=== PATIENT | male | born 1930 | race Caucasian/White ===

== ENCOUNTER 2019-07-26 13:59 | Observation (INO) | payer MEDICARE ==
[~2019-07-26] VITALS: Ht 182.9 cm; Wt 80.7 kg
[~2019-07-26 13:59] MED LIST: ASPIRIN ENTERI325 MG PO; COUMADIN2 MG PO; DILTIAZEM ER120 MG PO; DIOVAN80 MG PO; FINASTERIDE5 MG PO; LOSARTAN POTASS25 MG PO; LOVENOX60 MG/0.6 SC; OMEPRAZOLE40 MG PO; TAMSULOSIN HCL0.4 MG PO; WARFARIN SODIUM3 MG PO
[2019-07-26 15:43] LABS: CLARITY,URINE CLOUDY (CLEAR); COLOR,URINE YELLOW (YELLOW)
[2019-07-26 15:44] LABS: BILIRUBIN,URINE NEGATIVE (NEGATIVE); KETONES,URINE NEGATIVE (NEGATIVE); LEUKOCYTE ESTERASE ,URINE LARGE (NEGATIVE); NITRITE,URINE NEGATIVE (NEGATIVE); PROTEIN,URINE DIPSTICK 2+ (NEGATIVE); URINE UROBILINOGEN 0.2 mg/dL (0.2 - 1)
--- NOTE | 2019-07-26 15:48 | Diagnostic Imaging Report ---
EXAMINATION: CHEST 2 VIEWS INDICATION: Cough COMPARISON: None FINDINGS: LINES/TUBES:None LUNGS:The lungs are moderately inflated. No focal consolidation or pulmonary edema. PLEURA:Scattered calcifications overlying both lungs and at both diaphragms are likely pleural-based. No pleural effusion. No pneumothorax. MEDIASTINUM:The cardiomediastinal silhouette appears normal in size and shape. Atherosclerotic calcifications of the thoracic aorta. BONES/SOFT TISSUES:No acute osseous injury. ABDOMEN:No free air under the diaphragm. IMPRESSION: No focal pneumonia or pulmonary edema. Likely pleural-based calcifications, which can be seen with priors vessels exposure. Signed by: Kirsten Liu MD on 07/26/2019 3:46 PM
[2019-07-26 15:58] LABS: BACTERIA,URINE FEW /HPF; WBC,URINE (MAN) >50 /HPF (0-5)
[2019-07-26 16:00] LABS: EPITHELIAL CELLS,URINE FEW /LPF
[2019-07-26] MEDS ORDERED: MEROPENEM 1GM 100 ML IV ONE (16:30)
[2019-07-26] MEDS ORDERED: SODIUM CHLORIDE 0.9% 500ML 500 ML IV ONE (16:30)
[2019-07-26 17:07] LABS: BASOPHILS % 0.2 % (0.0-1.0); HEMATOCRIT 39.3 % (38.2-49.6); HEMOGLOBIN 13.2 g/dL (14.0-18.0); LYMPHOCYTES # (AUTO) 0.5 (1.0-3.2); LYMPHOCYTES % 10.8 % (18.0-39.1); MEAN CORPUSCULAR HEMOGLOBIN 31.7 pg (28-32); MEAN CORPUSCULAR HGB CONC 33.6 g/dL (31-35); MEAN CORPUSCULAR VOLUME 94.2 fL (81-99); MONOCYTES # (AUTO) 0.3 (0.2-0.8); MONOCYTES % 7.8 % (4.4-11.3); NEUTROPHILS # (AUTO) 3.5 (2.1-6.9); PLATELET COUNT 131 x10e3/uL (140-360); RED BLOOD COUNT 4.17 x10e6/uL (4.3-5.7); RED CELL DISTRIBUTION WIDTH 13.3 % (11.7-14.4)
[2019-07-26 17:14] LABS: INR 1.2; PROTHROMBIN TIME 15.5 seconds (11.9-14.5)
[2019-07-26 17:15] LABS: PARTIAL THROMBOPLASTIN TIME 33.9 seconds (23.8-35.5)
[2019-07-26] MEDS ORDERED: SODIUM CHLORIDE 0.9% 1000ML 1,000 ML IV ONE ×2 (17:15→19:45)
[2019-07-26] MEDS ORDERED: ONDANSETRON HCL INJ 2MG/ML 2ML 2 MG/ML VIAL IV PRN (17:15)
[2019-07-26 17:24] LABS: ALANINE AMINOTRANSFERASE 15 IU/L (0-55); ALBUMIN 3.3 g/dL (3.5-5.0); ALKALINE PHOSPHATASE 116 IU/L (40-150); ANION GAP 15.4 mmol/L (8-16); BLOOD UREA NITROGEN 12 mg/dL (7-26); BUN/CREATININE RATIO 13 (6-25); CALCIUM 8.8 mg/dL (8.4-10.2); CARBON DIOXIDE 22 mmol/L (22-29); CHLORIDE 99 mmol/L (98-107); CREATINE KINASE 92 IU/L (30-200); EST GLOMERULAR FILTRATION RATE > 60 ML/MIN (60-); GLUCOSE 117 mg/dL (74-118); POTASSIUM 3.4 mmol/L (3.5-5.1); SODIUM 133 mmol/L (136-145)
[2019-07-26] MEDS ORDERED: MEROPENEM 1GM 100 ML IV SCH (18:00)
--- OUTSIDE RECORDS SUMMARY | 2019-07-26 19:42 | XMS REPORT ---
Author Author [facility] Address Unknown Phone Unavailable Care Team Providers Care Paper Mill Manager Name Role Phone Betty CROFT Unavailable Unavailable Problems This patient has no known problems. Allergies, Adverse Reactions, Alerts This patient has no known allergies or adverse reactions. Medications This patient has no known medications. Results Test Description Test Time Test Comments Text Results Atomic Results Result Comments CHEST 2 VIEWS 2019-07-26 15:44:00 [place] [id number] [place] [id number] Patient Name: MY MOLINA MR #: [id number] : 1930 Age/Sex: 88/M Req #: [id number] Adm Physician: Ordered by: NORBERTO CROFT MD Report #: [id number] Location: ER Room/Bed: Procedure: [id number] DX/CHEST 2 VIEWS Exam Date: 07/26/19 Exam Time: 1522 REPORT STATUS: Signed EXAMINATION: CHEST 2 VIEWS INDICATION: Cough COMPARISON: None FINDINGS: LINES/TUBES:None LUNGS:The lungs are moderately inflated. No focal consolidation or pulmonary edema. PLEURA:Scattered calcifications overlying both lungs and at both diaphragms are likely pleural-based. No pleural effusion. No pneumothorax. MEDIASTINUM:The cardiomediastinal silhouette appears normal in size and shape. Atherosclerotic calcifications of the thoracic aorta. BONES/SOFT TISSUES:No acute osseous injury. ABDOMEN:No free air under the diaphragm. IMPRESSION: No focal pneumonia or pulmonary edema. Likely pleural-based calcifications, which can be seen with priors vessels exposure. Signed by: Joey Liu MD on 07/26/2019 3:46 PM Dictated By: JOEY LIU MD 154 Transcribed By: ANALIA on 07/26/191545 COPY TO: NORBERTO CROFT MD
[2019-07-26 19:45] VITALS: BP 169/81
[2019-07-27] VITALS (7 sets, daily range): BP systolic 116–169; BP diastolic 56–75
[2019-07-27] MEDS ORDERED: SODIUM CHLORIDE 0.9% 250ML 250 ML ONE (01:46)
[2019-07-27] MEDS: MEROPENEM 1GM 100 ML IV SCH ×3 (02:00→17:24)
[2019-07-27 05:33] LABS: BASOPHILS % 0.6 % (0.0-1.0); EOSINOPHILS % 0.3 % (0.0-6.0); HEMATOCRIT 34.7 % (38.2-49.6); HEMOGLOBIN 11.7 g/dL (14.0-18.0); LYMPHOCYTES % 26.2 % (18.0-39.1); MEAN CORPUSCULAR HEMOGLOBIN 31.6 pg (28-32); MEAN CORPUSCULAR HGB CONC 33.7 g/dL (31-35); MEAN CORPUSCULAR VOLUME 93.8 fL (81-99); MONOCYTES # (AUTO) 0.6 (0.2-0.8); MONOCYTES % 16.8 % (4.4-11.3); NEUTROPHILS % 55.5 % (38.7-80.0); PLATELET COUNT 119 x10e3/uL (140-360); RED CELL DISTRIBUTION WIDTH 13.2 % (11.7-14.4)
[2019-07-27 05:55] LABS: ANION GAP 12.3 mmol/L (8-16); BLOOD UREA NITROGEN 13 mg/dL (7-26); BUN/CREATININE RATIO 16 (6-25); CALCIUM 8.3 mg/dL (8.4-10.2); CARBON DIOXIDE 24 mmol/L (22-29); CHLORIDE 102 mmol/L (98-107); CREATININE, SERUM 0.82 mg/dL (0.72-1.25); EST GLOMERULAR FILTRATION RATE > 60 ML/MIN (60-); GLUCOSE 91 mg/dL (74-118); POTASSIUM 3.3 mmol/L (3.5-5.1); SODIUM 135 mmol/L (136-145)
[2019-07-27] MEDS ORDERED: ONDANSETRON HCL INJ 2MG/ML 2ML 2 MG/ML VIAL IV PRN (06:30)
[2019-07-27] MEDS ORDERED: SENNOSIDES 8.6 MG TAB PO PRN (06:30)
[2019-07-27] MEDS ORDERED: ZOLPIDEM TARTRATE 5 MG TAB PO PRN (06:30)
[2019-07-27] MEDS ORDERED: ACETAMINOPHEN 325 MG TAB PO PRN (06:30)
[2019-07-27] MEDS: PANTOPRAZOLE SOD 40 MG TABEC PO SCH (07:30)
[2019-07-27] MEDS: FINASTERIDE 5 MG TAB PO SCH (09:03)
[2019-07-27] MEDS: DILTIAZEM HCL LA 120MG 120 MG CAP PO SCH ×2 (09:03→16:54)
[2019-07-27] MEDS: TAMSULOSIN HCL 0.4 MG CAP PO SCH (09:03)
[2019-07-27] MEDS: WARFARIN SOD 2 MG TAB PO SCH (16:54)
[2019-07-28] VITALS (8 sets, daily range): BP systolic 121–175; BP diastolic 60–79
[2019-07-28] MEDS: MEROPENEM 1GM 100 ML IV SCH ×3 (01:55→18:27)
[2019-07-28 06:10] LABS: INR 1.27; PROTHROMBIN TIME 16.2 seconds (11.9-14.5)
[2019-07-28 06:55] LABS: BASOPHILS % 0.4 % (0.0-1.0); EOSINOPHILS # (AUTO) 0.2 (0.0-0.4); EOSINOPHILS % 4.7 % (0.0-6.0); HEMATOCRIT 34.8 % (38.2-49.6); HEMOGLOBIN 11.9 g/dL (14.0-18.0); LYMPHOCYTES % 22.1 % (18.0-39.1); MEAN CORPUSCULAR HEMOGLOBIN 32.1 pg (28-32); MEAN CORPUSCULAR HGB CONC 34.2 g/dL (31-35); MEAN CORPUSCULAR VOLUME 93.8 fL (81-99); MONOCYTES # (AUTO) 0.7 (0.2-0.8); NEUTROPHILS # (AUTO) 2.7 (2.1-6.9); NEUTROPHILS % 57.6 % (38.7-80.0); PLATELET COUNT 155 x10e3/uL (140-360); RED BLOOD COUNT 3.71 x10e6/uL (4.3-5.7); RED CELL DISTRIBUTION WIDTH 13.5 % (11.7-14.4)
[2019-07-28] MEDS: PANTOPRAZOLE SOD 40 MG TABEC PO SCH (07:30)
[2019-07-28] MEDS ORDERED: POTASSIUM CHLORIDE 20 MEQ TAB CR PO ONE ×2 (08:15)
[2019-07-28] MEDS: TAMSULOSIN HCL 0.4 MG CAP PO SCH (08:44)
[2019-07-28] MEDS: FINASTERIDE 5 MG TAB PO SCH (08:44)
[2019-07-28] MEDS: DILTIAZEM HCL LA 120MG 120 MG CAP PO SCH ×2 (09:00→17:00)
[2019-07-28] MEDS ORDERED: ONDANSETRON HCL 4 MG ORAL DISINTEGRATING TAB PO PRN (10:15)
[2019-07-28] MEDS: WARFARIN SOD 2 MG TAB PO SCH (18:27)
[2019-07-29 00:27] VITALS: BP 139/66
[2019-07-29] MEDS: MEROPENEM 1GM 100 ML IV SCH (01:53)
[2019-07-29 04:00] VITALS: BP 158/70
[2019-07-29] MEDS ORDERED: KEFLEX500 MG PO (06:45)
[2019-07-29 07:08] LABS: INR 1.44; PROTHROMBIN TIME 18.5 seconds (11.9-14.5)
[2019-07-29] MEDS: PANTOPRAZOLE SOD 40 MG TABEC PO SCH (07:30)
[2019-07-29 08:12] VITALS: BP 151/73
[2019-07-29] MEDS: TAMSULOSIN HCL 0.4 MG CAP PO SCH (08:15)
[2019-07-29] MEDS: FINASTERIDE 5 MG TAB PO SCH (08:15)
[2019-07-29] MEDS: DILTIAZEM HCL LA 120MG 120 MG CAP PO SCH (08:15)
[2019-07-29 08:46] VITALS: BP 151/73
== END 2019-07-29 08:35 | disposition home or self-care (01) ==
LOC: ER 13:59 → ERHOLD 17:06 → MED/SURG 19:44
PROVIDERS: ADMIT Internal Medicine; ATTEND Internal Medicine
DX: N39.0 Urinary tract infection, site not specified (principal); D61.818 Other pancytopenia; E87.6 Hypokalemia; D64.9 Anemia, unspecified; K21.9 Gastro-esophageal reflux disease without esophagitis; I48.0 Paroxysmal atrial fibrillation; Z79.01 Long term (current) use of anticoagulants; I10 Essential (primary) hypertension; Z96.653 Presence of artificial knee joint, bilateral; K63.89 Other specified diseases of intestine; Z85.038 Personal history of other malignant neoplasm of large intestine; B95.62 Methicillin resistant Staphylococcus aureus infection as the cause of diseases classified elsewhere
CPT/HCPCS: 36415; 71046; 80048; 80053; 81001; 82550; 82553; 84132; 84484; 85025; 85610; 85730; 87040; 87086; 87186; 93005; 94640; 99284; G0378; J7040; J7050

== ENCOUNTER 2020-04-06 10:46 | Emergency (ER) | payer MEDICARE ==
[~2020-04-06] VITALS: Ht 208.3 cm; Wt 80.7 kg
[~2020-04-06 10:46] MED LIST changes: +KEFLEX500 MG PO
--- NOTE | 2020-04-06 11:45 | Emergency Department Note ---
History of Present Illnes History of Present Illness Chief Complaint: General Medicine Complaints History of Present Illness This is a 89 year old male Chief Complaint Comment Patient in from home as told to do so by Dr. Duran with reports of a mechanical trip and fall on Thursday. Patient reports that he tripped over something on the floor and hit his face. Patient with bruising to the bridge of his nose. Denies loss of consciousness, headache and blurred vision. Patient does report that he was on Coumadin but stopped taking it on Thursday. Historian: Patient Arrival Mode: Car Data Management Required: No Onset (how long ago): day(s) (3) Location: head Quality: bruise Radiation: Reports non-radiation Severity: mild Onset quality: sudden Duration (how long): day(s) (3) Timing of current episode: constant Progression: unchanged Chronicity: new Context: Denies recent illness, Denies recent surgery Relieving factors: none Exacerbating factors: none Associated symptoms: Reports denies other symptoms Treatments prior to arrival: none Past Medical/Family History Physician Review I have reviewed the patient's past medical and family history. Any updates have been documented here. Past Medical History Recent Fever: No Clinical Suspicion of Infectio: No New/Unexplained Change in Ment: No Past Medical History: Hypertension Other Medical History: ENLARGED PROSTATE OSTEOARTHRITIS HIGH CHOLESTEROL COLON CANCER BLEEDING ULCERS Past Surgical History: Knee Replacement Other Surgery: BILATERAL KNEE SURGERY COLON SURGERY Social History Smoking Cessation: Never Smoker Alcohol Use: None Any Illegal Drug Use: No Other Last Tetanus: UNK Any Pre-Existing Lines (PICC,: No Review of Systems Review of Systems Constitutional: Reports no symptoms EENTM: Reports as per HPI Cardiovascular: Reports no symptoms Respiratory: Reports no symptoms Gastrointestinal: Reports no symptoms Genitourinary: Reports no symptoms Musculoskeletal: Reports no symptoms Integumentary: Reports no symptoms Neurological: Reports no symptoms Psychological: Reports no symptoms Endocrine: Reports no symptoms Hematological/Lymphatic: Reports no symptoms Physical Exam Related Data Allergies: Coded Allergies: No Known Allergies (Unverified , 12/02/12) Triage Vital Signs Vital Signs Date Time Temp Pulse Resp B/P (MAP) Pulse Ox O2 Delivery O2 Flow Rate FiO2 04/06/20 11:17 97.9 61 16 122/59 100 Room Air Vital signs reviewed: Yes Physical Exam CONSTITUTIONAL Constitutional: Present well-developed, Present well-nourished HENT HENT: Present normocephalic, Present oropharynx clear/moist, Present nose normal; Absent atraumatic (Bruising to nasal bridge) HENT L/R: Present left ext ear normal, Present right ext ear normal EYES Eyes: Reports PERRL, Reports conjunctivae normal NECK Neck: Present ROM normal PULMONARY Pulmonary: Present effort normal, Present breath sounds normal CARDIOVASCULAR Cardiovascular: Present regular rhythm, Present heart sounds normal, Present capillary refill normal, Present normal rate GASTROINTESTINAL Abdominal: Present soft, Present nontender, Present bowel sounds normal GENITOURINARY Genitourinary: Present exam deferred SKIN Skin: Present warm, Present dry MUSCULOSKELETAL Musculoskeletal: Present ROM normal NEUROLOGICAL Neurological: Present alert, Present oriented x 3, Present no gross motor or sensory deficits PSYCHOLOGICAL Psychological: Present mood/affect normal, Present judgement normal Results Imaging Imaging results reviewed: Yes Assessment & Plan Medical Decision Making MDM 89 y.o M presents for fall on Thursday (3 days ago) no LoC, + thinners. No complaints at this time. CT brain/C-spine/Max-face show no acute abnormalities. Appropriate for DC. Reassessment Reassessment time: 11:45 Reassessment Well appearing, NAD Assessment & Plan Final Impression: (1) Fall Depart Disposition: HOME, SELF-CARE Last Vital Signs Date Time Temp Pulse Resp B/P (MAP) Pulse Ox O2 Delivery O2 Flow Rate FiO2 04/06/20 11:17 97.9 61 16 122/59 100 Room Air Home Meds Active Scripts Cephalexin Monohydrate (KEFLEX) 500 Mg Capsule, 500 MG PO Q12H, #10 Prov:LUCY BERNABE MD 07/29/19 Reported Medications Omeprazole (OMEPRAZOLE) 40 Mg Capsule.dr, 40 MG PO DAILY 12/12/16 Finasteride (FINASTERIDE) 5 Mg Tablet, 5 MG PO DAILY, #30 TAB 12/12/16 Tamsulosin Hcl (TAMSULOSIN HCL) 0.4 Mg Cap.er.24h, 0.4 MG PO DAILY 12/12/16 Warfarin Sodium (COUMADIN) 2 Mg Tablet, 4 MG PO 1700, #7 TAB 02/06/15 Diltiazem Hcl (DILTIAZEM ER) 120 Mg Tber, 120 MG PO BID 12/02/12 FRENCH BOLAÑOS MD Apr 06, 2020 11:45
--- NOTE | 2020-04-06 13:10 | Diagnostic Imaging Report ---
EXAMINATION: Head and face CT without contrast. HISTORY: Status post fall, he did phase and the head, trauma, pain COMPARISON: None. TECHNIQUE: Multidetector axial images were obtained without contrast from the foramen magnum to the vertex and over the face. Dose modulation, iterative reconstruction, and/or weight based adjustment of the mA/kV was utilized to reduce the radiation dose to as low as reasonably achievable. Head CT findings: Skull: No lytic or blastic lesions. No fractures. Parenchyma: Right medial occipital lingual gyrus cortical subcortical encephalomalacia and left medial occipital cuneus gyrus encephalomalacia, likely the sequela from remote bilateral [employer] infarcts. Persistent mild white matter chronic microvascular ischemic changes. No mass, hemorrhage or CT evidence of acute vascular insult. Brain volume: Normal for age. Ventricles: No hydrocephalus or displacement. Arteries: No density suggestive of thrombus. Calcified atheromatous changes of the intrauterine intracranial vessels. Dural sinuses: No abnormal density. Extra-axial spaces: No abnormal density. Foramen magnum: No mass, Chiari malformation, or basilar invagination. Sella: No obvious mass. Face CT findings: Bones: No acute facial fractures. Facial soft tissues: Mild left forehead soft tissue swelling. Orbits contents: Unremarkable. Paranasal sinuses and drainage pathways: Partial opacification of the right posterior ethmoidal air cells, the remaining paranasal sinuses are otherwise clear. Nasal septum and nasal cavities: Right superior and left posterior deviation, bone spur is compressing the left inferior turbinate. Mild hypertrophy of the inferior turbinates. Anatomic variations: No significant anatomic variations. Teeth: Edentulous patient. IMPRESSION: Head CT: 1. No acute posttraumatic intracranial hemorrhage. 2. Bilateral chronic occipital infarcts. 3. Persistent mild chronic microvascular ischemic changes. Face CT: 1. No acute facial fractures. 2. Mild left forehead soft tissue swelling. Signed by: Dr. Saumya Wilson M.D. on 04/06/2020 1:07 PM
--- NOTE | 2020-04-06 13:11 | Diagnostic Imaging Report ---
EXAMINATION: CT of the cervical spine HISTORY: Status post fall, head trauma, head and neck pain COMPARISON: None available TECHNIQUE: Multidetector helical axial images were obtained without contrast from the foramen magnum to T1. Dose modulation, iterative reconstruction, and/or weight based adjustment of the mA/kV was utilized to reduce the radiation dose to as low as reasonably achievable. FINDINGS: Alignment: Normal alignment and lordosis Soft tissues: Partially visualized right-sided pleural effusion. Vertebrae: Normal height and density. No acute fracture, infection or neoplasm Degenerative changes: C1-C2: Degenerative changes without significant stenoses. C2-C3: Interbody and posterior elements fusion. No stenoses C3-C4: Bilateral facet arthrosis. Minimal anterolisthesis. Moderately severe bilateral foraminal stenoses. C4-C5: Disc osteophyte complex formation, uncovertebral and facet arthrosis. Grade 1 degenerative anterolisthesis. Mild spinal canal and moderate right foraminal stenoses. C5-C6: Disc osteophyte complex formation, bilateral uncovertebral and facet arthrosis. Severe spinal canal and bilateral foraminal stenoses. C6-C7: Disc osteophyte complex formation, bilateral uncovertebral facet arthrosis. Mild spinal canal stenosis. Severe right and moderate left foraminal stenosis. C7-T1: Normal IMPRESSION: 1. No acute cervical spine postraumatic abnormalities. 2. Multilevel chronic degenerative changes are detailed above. 3. Partially visualized small right pleural effusion. Note: Acute postraumatic spinal cord, vascular or ligamentous injuries cannot adequately be assessed by CT. Signed by: Dr. Saumya Wilson M.D. on 04/06/2020 1:08 PM
[2020-04-06 13:22] VITALS: BP 136/72
--- OUTSIDE RECORDS SUMMARY | 2020-04-06 14:17 | XMS REPORT | Continuity of Care Document ---
Author Author [facility] t Organization [facility] Address [address] [place] [address] Phone Unavailable Care Team Providers Care Precision Lathe Operator Name Role Phone Vincent ZARCO MD PCP Victor Hugo Perez Attphys Unavailable Betty CROFT Attphys Unavailable Payers Payer Name Policy Type Policy Number Effective Date Expiration Date [place] [id number] 2019 00:00:00 [facility] Problems Condition Name Condition Details Condition Category Status Onset Date Resolution Date Last Treatment Date Treating Clinician Comments Source Lower gastrointestinal hemorrhage Lower GI bleed Problem Activ e 2014-04-28 00:00:00 [facility] Urinary tract infection UTI (urinary tract infection) Problem Active [facility] Allergies, Adverse Reactions, Alerts This patient has no known allergies or adverse reactions. Medications Ordered Medication Name Filled Medication Name Start Date Stop Da te Current Medication? Ordering Clinician Indication Dosage Frequency Signature (SIG) Comments Components Source Cephalexin Monohydrate (Keflex) 500 Mg Capsule Cephale uvaldo Monohydrate (Keflex) 500 Mg Capsule 2019-07-29 00:00:00 Yes Wilber Portillo Md 500 Every 12 Hours [facility] Enoxaparin Sodium (Lovenox) 60 Mg/0.6 Ml Inj, 40 Mg [place] bcutaneously Enoxaparin Sodium (Lovenox) 60 Mg/0.6 Ml Inj, 40 Mg Subcutaneously 2015-02-07 00:00:00 2016-12-12 00:00:00 No Martin Breen 40 Today At 5 :00PM [facility] Diltiazem Hcl (Diltiazem Er) 120 Mg Tber Diltiazem Hcl (Diltiazem Er) 120 Mg Tber Yes 120 Twice A Day [facility] Finasteride 5 Mg Tablet Finasteride 5 Mg Tablet Yes 5 Daily [facility] Omeprazole 40 Mg Capsule. Omeprazole 40 Mg Capsule. Yes 40 Daily [facility] Tamsulosin Hcl 0.4 Mg Cap.er.24h Tamsulosin Hcl 0.4 Mg Cap.er.24h Yes .4 Daily [facility] Warfarin Sodium (Coumadin) 2 Mg Tablet Warfarin Sodium (Coumadin ) 2 Mg Tablet Yes 4 Today At 5:00PM [facility] Aspirin (Aspirin Enteric Coated) 325 Mg Tabec, 325 Mg Oral Aspirin (Aspirin Enteric Coated) 325 Mg Tabec, 325 Mg Oral 2016-12-15 00:00:00 No 325 Daily [facility] Losartan Potassium 25 Mg Tablet, 25 Mg Oral Losartan P otassium 25 Mg Tablet, 25 Mg Oral 2016-12-12 00:00:00 No 25 Bedtime [facility] Warfarin Sodium 3 Mg Tablet, 4 Mg Oral Warfarin Sodium 3 Mg Tabl et, 4 Mg Oral 2015-02-06 00:00:00 No 4 Daily [facility] Valsartan (Diovan) 80 Mg Tab, 160 Mg Oral Valsartan (D iovan) 80 Mg Tab, 160 Mg Oral 2014-01-13 00:00:00 No 160 Daily [facility] Procedures Procedure Date / Time Performed Performing Clinician [facility] e X-ray of chest, two views 2019-07-26 00:00:00 NORBERTO CROFT CH I [facility] Encounters Start Date/Time End Date/Time En[facility] Encounter ID Source 2019-07-26 17:06:00 2019-07-29 08:35:00 Discharged Inpatient (obs) 1 NORBERTO CROFT [facility] [id number] [facility] Results Test Description Test Time Test Comments Results Result Comments Source CT CERVICAL SPINE WO 2020-04-06 12:26:00 [facility] 1930 Sex: M [facility] [address] [address] Patient Name: MY MOLINA MR #: [id number] : 1930 Age/Sex: 89/M Req #: [id number] Adm Physician: Ordered by: French Perez MD Report #: [id number] Location: ER Room/Bed: Procedure: [id number] CT/CT CERVICAL SPINE WO Exam Date: 04/06/20 Exam Time: 1153 REPORT STATUS: Signed EXAMINATION: CT of the cervical spine HISTORY: Status post fall, head trauma, head and neck pain COMPARISON: None available TECHNIQUE: Multidetector helical axial images were obtained without contrast from the foramen magnum to T1. Dose modulation, iterative reconstruction, and/or weight based adjustment of the mA/kV was utilized to reduce the radiation dose to as low as reasonably achievable. FINDINGS: Alignment: Normal alignment and lordosis Soft tissues: Partially visualized right-sided pleural effusion. Vertebrae: Normal height and density. No acute fracture, infection or neoplasm De generative changes: C1-C2: Degenerative changes without significant stenoses. C2-C3: Interbody and posterior elements fusion. No stenoses C3-C4: Bilateral facet arthrosis. Minimal anterolisthesis. Moderately severe bilateral foraminal stenoses. C4-C5: Disc osteophyte complex formation, uncovertebral and facet arthrosis. Grade 1 degenerative anterolisthesis. Mild spinal canal and moderate right foraminal stenoses. C5-C6: Disc osteophyte complex formation, bilateral uncovertebral and facet arthrosis. Severe spinal canal and bilateral foraminal stenoses. C6-C7: Disc osteophyte complex formation, bilateral uncovertebral facet arthrosis. Mild spinal canal stenosis. Severe right and moderate left foraminal stenosis. C7-T1: Normal IMPRESSION: 1. No acute cervical spine postraumatic abnormalities. 2. Multilevel chronic degenerative changes are detailed above. 3. Partially visualized small right pleural effusion. Note: Acute postraumatic spinal cord, vascular or ligamentous injuries cannot adequately be assessed by CT. Signed by: Dr. Jose De Jesus Wilson M.D. on 04/06/2020 1:08 PM Dictated By: JOSE DE JESUS WILSON MD 130 Transcribed By: ANALIA on 04/06/20 1308 COPY TO: FRENCH PEREZ MD CT [facility] WO 2020-04-06 12:15:00 [facility] 1930 Sex: [place] [address] [address] Patient Name: MY MOLINA MR #: [id number] : 1930 Age/Sex: 89/M Req #: [id number] Adm Physician: Ordered by: French Perez MD Report #: [id number] Location: ER Room/Bed: Procedure: [id number] CT/CT MAXIO FAC/PARANAS WO Exam Date: 04/06/20 Exam Time: 1153 REPORT STATUS: Signed EXAMINATION: Head and face CT without contrast. HISTORY: Status post fall, he did phase and the head, trauma, pain COMPARISON: None. TECHNIQUE: Multidetector axial images were obtained without contrast from the foramen magnum to the vertex and over the face. Dose modulation, iterative reconstruction, and/or weight based adjustment of the mA/kV was utilized to reduce the radiation dose to as low as reasonably achievable. Head CT findings: Skull: No lytic or blastic lesions. No fractures. Parenchyma: Right medial occipital lingual gyrus cortical subcortical encephalomalacia and left medial occipital cuneus gyrus encephalomalacia, likely the sequela from remote bilateral [employer] SCI[employer] infarcts. Persistent mild white matter chronic microvascular ischemic changes. No mass, hemorrhage or CT evidence of acute vascular insult. Brain volume: Normal for age. Ventricles: No hydrocephalus or displacement. Arteries: No density suggestive of thrombus. Calcified atheromatous changes of the intrauterine intracranial vessels. Dural sinuses: No abnormal density. Extra-axial spaces: No abnormal density. Foramen magnum: No mass, Chiari malformation, or basilar invagination. Sella: No obvious mass. Face CT findings: Bones: No acute facial fractures. Facial soft tissues: Mild left forehead soft tissue swelling. Orbits contents: Unremarkable. Paranasal sinuses and drainage pathways: Partial opacification of the right posterior ethmoidal air cells, the remaining paranasal sinuses are otherwise clear. Nasal septum and maile al cavities: Right superior and left posterior deviation, bone spur is compressing the left inferior turbinate. Mild hypertrophy of the inferior turbinates. Anatomic variations: No significant anatomic variations. Teeth: Edentulous patient. IMPRESSION: Head CT: 1. No acute posttraumatic intracranial hemorrhage. 2. Bilateral chronic occipital infarcts. 3. Persistent mild chronic microvascular ischemic changes. Face CT: 1. No acute facial fractures. 2. Mild left forehead soft tissue swelling. Signed by: Dr. Jose De Jesus Wilson M.D. on 04/06/2020 1:07 PM Dictated By: JOSE DE JESUS WILSON MD 06 Transcribed By: ANALIA on 04/06/201306 COPY TO: FRENCH PEREZ MD CT BRAIN WO 2020-04-06 12:15:00 [facility] 1930 Sex: [place] [address] [address] Patient Name: MY MOLINA MR #: [id number] : 1930 Age/Sex: 89/M Req #: [id number] [facility] Physician: Ordered by: French Perez MD Report #: [id number] Location: Room/Bed: Procedure: [id number] CT/CT BRAIN WO Exam Date: 04/06/20 Exam Time: 1153 REPORT STATUS: Signed EXAMINATION: Head and face CT without contrast. HISTORY: Status post fall, he did phase and the head, trauma, pain COMPARISON: None. TECHNIQUE: Multidetector axial images were obtained without contrast from the foramen magnum to the vertex and over the face. Dose modulation, iterative reconstruction, and/or weight based adjustment of the mA/kV was utilized to reduce the radiation dose to as low as reasonably achievable. Head CT findings: Skull: No lytic or blastic lesions. No fractures. 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 Persistent mild white matter chronic microvascular ischemic changes. No mass, hemorrhage or CT evidence of acute vascular insult. Brain volume: Normal for age. Ventricles: No hydrocephalus or displacement. Arteries: No density suggestive of thrombus. Calcified atheromatous changes of the intrauterine intracranial vessels. Dural sinuses: No abnormal density. Extra-axial spaces: No abnormal density. Foramen magnum: No mass, Chiari malformation, or basilar invagination. Sella: No obvious mass. Face CT findings: Bones: No acute facial fractures. Facial soft tissues: Mild left forehead soft tissue swelling. Orbits contents: Unremarkable. Paranasal sinuses and drainage pathways: Partial opacification of the right posterior ethmoidal air cells, the remaining paranasal sinuses are otherwise clear. Nasal septum and nasal cavitie s: Right superior and left posterior deviation, bone spur is compressing the left inferior turbinate. Mild hypertrophy of the inferior turbinates. Anatomic variations: No significant anatomic variations. Teeth: Edentulous patient. IMPRESSION: Head CT: 1. No acute posttraumatic intracranial hemorrhage. 2. Bilateral chronic occipital infarcts. 3. Persistent mild chronic microvascular ischemic changes. Face CT: 1. No acute facial fractures. 2. Mild left forehead soft tissue swelling. Signed by: Dr. Jose De Jesus Wilson M.D. on 04/06/2020 1:07 PM Dictated By: JOSE DE JESUS WILSON MD [id number] Transcribed By: ANALIA on 04/06/20 1302 COPY TO: FRENCH PEREZ MD Prothrombin Time 2019-07-29 07:10:00 Test Item Prothrombin Time (test code = 5902-2) 18.5 11.9-14.5 H [facility] International Ratio 2019-07-29 07:10:00* Test Item Value Reference Range Interpretation Comments Prothromb Time International Ratio (test code = 6301-6) 1.44 Oral Anticoagulant Therapy INR Values:1. Low Intensity Therapy 1.5 - 2.02 . Moderate Intensity Therapy 2.0 - 3.03. High Intensity Therapy(1) 2.5 - 3. 54. High Intensity Therapy(2) 3.0 - 4.05. Panic Value INR > 5.0 [facility] SystemPotassium Crvzd1719-53-95 07:06:00* Test Item Value Reference Range Interpretation Comments Potassium Level (test code = 2823-3) 4.0 3.5-5.1 [facility] SystemBlood Ndmgmnv0178-02-31 17:07:00* Test Item Value Reference Range Interpretation Comments Blood Culture (test code = 79611994) NO GROWTH AFTER 48 HOURS [facility] SystemUrine Xrmghpn7843-46-72 10:30:00* Test Item Value Reference Range Interpretation Comments Urine Culture (test code = 630-4) No Result Data Provided [facility] SystemWhite Blood Uchoz5812-96-76 07:17:00* Test Item Value Reference Range Interpretation Comments White Blood Count (test code = 6690-2) 4.66 4.8-10.8 L [facility] SystemRed Blood Tpjax6650-88-20 07:17:00* Test Item Value Reference Range Interpretation Comments Red Blood Count (test code = 789-8) 3.71 4.3-5.7 L [facility] SystemHemoglobin2020-02-06 07:17:00* Test Item Value Reference Range Interpretation Comments Hemoglobin (test code = 42354-3) 11.9 14.0-18.0 L [facility] SystemHematocrit2020-02-06 07:17:00* Test Item Value Reference Range Interpretation Comments Hematocrit (test code = 4544-3) 34.8 38.2-49.6 L [facility] SystemMean Corpuscular Roipyv5002-03-54 07:17:00* Test Item Value Reference Range Interpretation Comments Mean Corpuscular Volume (test code = 787-2) 93.8 81-99 [facility] SystemMean Corpuscular Dkcsfsdury5572-69-54 07:17:00* Test Item Value Reference Range Interpretation Comments Mean Corpuscular Hemoglobin (test code = 785-6) 32.1 28-32 H [facility] SystemMean Corpuscular Hemoglobin Concent 2019-07-28 07:17:00* Test Item Value Reference Range Interpretation Comments Mean Corpuscular Hemoglobin Concent (test code = 786-4) 34.2 31-35 [facility] SystemRed Cell Distribution Grbxj5790-61-73 07:17:00* Test Item Value Reference Range Interpretation Comments Red Cell Distribution Width (test code = 56608-2) 13.5 11.7 -14.4 [facility] SystemPlatelet Yitsy2293-79-65 07:17:00* Test Item Value Reference Range Interpretation Comments Platelet Count (test code = 777-3) 155 140-360 [facility] SystemNeutrophils (%) (Auto)2019-07-28 07:17:00 * Test Item Value Reference Range Interpretation Comments Neutrophils (%) (Auto) (test code = 83078-4) 57.6 38.7-80.0 [facility] SystemLymphocytes (%) (Auto)2019-07-28 07:17:00 * Test Item Value Reference Range Interpretation Comments Lymphocytes (%) (Auto) (test code = 736-9) 22.1 18.0-39.1 [facility] SystemMonocytes (%) (Auto)2019-07-28 07:17:00* Test Item Value Reference Range Interpretation Comments Monocytes (%) (Auto) (test code = 5905-5) 15.0 4.4-11.3 H [facility] SystemEosinophils (%) (Auto)2019-07-28 07:17:00 * Test Item Value Reference Range Interpretation Comments Eosinophils (%) (Auto) (test code = 713-8) 4.7 0.0-6.0 [facility] SystemBasophils (%) (Auto)2019-07-28 07:17:00* Test Item Value Reference Range Interpretation Comments Basophils (%) (Auto) (test code = 706-2) 0.4 0.0-1.0 [facility] SystemIM GRANULOCYTES %2019-07-28 07:17:00* Test Item Value Reference Range Interpretation Comments IM GRANULOCYTES % (test code = IM GRANULOCYTES %) 0.2 0.0- 1.0 [facility] SystemNeutrophils # (Auto)2019-07-28 07:17:00* Test Item Value Reference Range Interpretation Comments Neutrophils # (Auto) (test code = 751-8) 2.7 2.1-6.9 [facility] SystemLymphocytes # (Auto)2019-07-28 07:17:00* Test Item Value Reference Range Interpretation Comments Lymphocytes # (Auto) (test code = 79728-7) 1.0 1.0-3.2 [facility] SystemMonocytes # (Auto)2019-07-28 07:17:00* Test Item Value Reference Range Interpretation Comments Monocytes # (Auto) (test code = 742-7) 0.7 0.2-0.8 [facility] SystemEosinophils # (Auto)2019-07-28 07:17:00* Test Item Value Reference Range Interpretation Comments Eosinophils # (Auto) (test code = 711-2) 0.2 0.0-0.4 [facility] SystemBasophils # (Auto)2019-07-28 07:17:00* Test Item Value Reference Range Interpretation Comments Basophils # (Auto) (test code = 704-7) 0.0 0.0-0.1 [facility] SystemAbsolute Immature Granulocyte (auto 2019-07-28 07:17:00* Test Item Value Reference Range Interpretation Comments Absolute Immature Granulocyte (auto (valdo t code = Absolute Immature Granulocyte (auto) 0.01 0-0.1 [facility] SystemPlatelet Morphology Peeuorm8530-70-62 07:16:00* Test Item Value Reference Range Interpretation Comments Platelet Morphology Comment (test code = 79781-3) NO EDTA PLT CL[facility] Jvfhl5290-95-54 05:56:00* Test Item Value Reference Range Interpretation Comments Sodium Level (test code = 2951-2) 135 136-145 L [facility] SystemChloride Cgxkt0321-49-12 05:56:00* Test Item Value Reference Range Interpretation Comments Chloride Level (test code = 2075-0) 102 98-107 [facility] SystemCarbon Dioxide Awqdc4840-05-09 05:56:00* Test Item Value Reference Range Interpretation Comments Carbon Dioxide Level (test code = 2028-9) 24 22-29 [facility] SystemAnion Qww8511-61-55 05:56:00* Test Item Value Reference Range Interpretation Comments Anion Gap (test code = 39532-4) 12.3 8-16 [facility] SystemBlood Urea Gacctasc0077-05-09 05:56:00* Test Item Value Reference Range Interpretation Comments Blood Urea Nitrogen (test code = 3094-0) 13 7-26 [facility] SystemCreatinine2020-02-05 05:56:00* Test Item Value Reference Range Interpretation Comments Creatinine (test code = 2160-0) 0.82 0.72-1.25 [facility] SystemBUN/Creatinine Ymjaz8566-99-02 05:56:00* Test Item Value Reference Range Interpretation Comments BUN/Creatinine Ratio (test code = 3097-3) 16 6-25 [facility] SystemEstimat Glomerular Filtration Rate 2019-07-27 05:56:00* Test Item Value Reference Range Interpretation Comments Estimat Glomerular Filtration Rate (test code = 467307797) > 60 >60 Ranges were taken from the National Kidney Disease Education Program and the [facility], [facility] [employer] literature.Reference ranges:60 or greater: Ialgqg81-81 ( for 3 consecutive months): Chronic kidney disease 15 or less: Kidney failureUnited Regional Healthcare SystemGlucose Bcqeg4396-83-18 05:56:00* Test Item Value Reference Range Interpretation Comments Glucose Level (test code = EKI7662) 91 74-118 [facility] SystemCalcium Xrioq3678-91-76 05:56:00* Test Item Value Reference Range Interpretation Comments Calcium Level (test code = 70070-2) 8.3 8.4-10.2 L [facility] SystemCreatine Kinase CF7675-17-92 17:33:00* Test Item Value Reference Range Interpretation Comments Creatine Kinase MB (test code = 32558-2) 1.40 0-5.0 [facility] SystemTroponin D4132-36-92 17:33:00* Test Item Value Reference Range Interpretation Comments Troponin I (test code = VCN6812) 0.037 0-0.300 [facility] Uziaxzyri2871-39-53 17:26:00* Test Item Value Reference Range Interpretation Comments Total Bilirubin (test code = 1975-2) 1.0 0.2-1.2 [facility] SystemAspartate Amino Transf (AST/SGOT) 2019-07-26 17:26:00* Test Item Value Reference Range Interpretation Comments Aspartate Amino Transf (AST/SGOT) (test code = Aspartate Amino Transf (AST/SGOT)) 36 5-34 H [facility] SystemAlanine Aminotransferase (ALT/SGPT) 2019-07-26 17:26:00* Test Item Value Reference Range Interpretation Comments Alanine Aminotransferase (ALT/SGPT) (test code = 1742-6) 15 0-55 [facility] Cravfme5754-70-36 17:26:00* Test Item Value Reference Range Interpretation Comments Total Protein (test code = 2885-2) 6.5 6.5-8.1 [facility] SystemAlbumin2020-02-04 17:26:00* Test Item Value Reference Range Interpretation Comments Albumin (test code = 1751-7) 3.3 3.5-5.0 L [facility] SystemGlobulin2020-02-04 17:26:00* Test Item Value Reference Range Interpretation Comments Globulin (test code = 13945-7) 3.2 2.3-3.5 [facility] SystemAlbumin/Globulin Ajran1300-27-26 17:26:00 * Test Item Value Reference Range Interpretation Comments Albumin/Globulin Ratio (test code = 1759-0) 1.0 0.8-2.0 [facility] SystemAlkaline Jrfbuccllrc5803-83-47 17:26:00* Test Item Value Reference Range Interpretation Comments Alkaline Phosphatase (test code = 6768-6) 116 40-150 [facility] SystemCreatine Shpkwo6589-15-38 17:26:00* Test Item Value Reference Range Interpretation Comments Creatine Kinase (test code = 2157-6) 92 30-200 [facility] SystemActivated Partial Thromboplast Time 2019-07-26 17:17:00* Test Item Value Reference Range Interpretation Comments Activated Partial Thromboplast Time (test code = 06194-0) 33.9 23.8-35.5 [facility] SystemUrine PKI9034-35-13 16:00:00* Test Item Value Reference Range Interpretation Comments Urine WBC (test code = 5821-4) >50 0-5 H [facility] SystemUrine SIK2559-49-50 16:00:00* Test Item Value Reference Range Interpretation Comments Urine RBC (test code = 23487-9) 11-20 0-5 H [facility] SystemUrine Vzakzcwu7168-44-57 16:00:00* Test Item Value Reference Range Interpretation Comments Urine Bacteria (test code = 12157-6) FEW NONE [facility] SystemUrine Epithelial Nhgzn0357-24-23 16:00:00 * Test Item Value Reference Range Interpretation Comments Urine Epithelial Cells (test code = 58643-7) FEW NONE [facility] SystemUrine Dwkib6404-86-68 15:45:00* Test Item Value Reference Range Interpretation Comments Urine Color (test code = 5778-6) YELLOW YELLOW [facility] SystemUrine Ffnbnjf2256-49-74 15:45:00* Test Item Value Reference Range Interpretation Comments Urine Clarity (test code = 55821-8) CLOUDY CLEAR H [facility] SystemUrine Specific Poazasn3344-61-03 15:45:00 * Test Item Value Reference Range Interpretation Comments Urine Specific [place] (test code = 5811-5) 1.015 1.010-1.02 5 [facility] SystemUrine iR2110-08-76 15:45:00* Test Item Value Reference Range Interpretation Comments Urine pH (test code = 57774-1) 6 5-7 [facility] SystemUrine Leukocyte Awdzywgp1616-23-31 15:45:00* Test Item Value Reference Range Interpretation Comments Urine Leukocyte Esterase (test code = 5799-2) LARGE NEGATIVE [facility] SystemUrine Flzzrlj8896-10-27 15:45:00* Test Item Value Reference Range Interpretation Comments Urine Nitrite (test code = 89148-1) NEGATIVE NEGATIVE [facility] SystemUrine Gymdeal7164-93-58 15:45:00* Test Item Value Reference Range Interpretation Comments Urine Protein (test code = 5804-0) 2+ NEGATIVE H [facility] SystemUrine Glucose (UA)2019-07-26 15:45:00* Test Item Value Reference Range Interpretation Comments Urine Glucose (UA) (test code = 2349-9) NEGATIVE NEGATIVE [facility] SystemUrine Asvqdts3186-87-10 15:45:00* Test Item Value Reference Range Interpretation Comments Urine Ketones (test code = 23564-2) NEGATIVE NEGATIVE [facility] SystemUrine Zybzfgojbpqw2506-27-37 15:45:00* Test Item Value Reference Range Interpretation Comments Urine Urobilinogen (test code = 43928-7) 0.2 0.2-1 [facility] SystemUrine Njdyxvhjt2344-94-56 15:45:00* Test Item Value Reference Range Interpretation Comments Urine Bilirubin (test code = 1978-6) NEGATIVE NEGATIVE [facility] SystemUrine Pkyns0149-04-36 15:45:00* Test Item Value Reference Range Interpretation Comments Urine Blood (test code = 67597-2) 3+ NEGATIVE [facility] SystemCHEST 2 SSZMU2553-08-86 15:44:00 [facility] [address] [address] Patient Name: MY MOLINA MR #: [id number] : 1930 Age/Sex: 88/M Req #: [id number] Adm Physician: Ordered by: NORBERTO CROFT MD Report #: [id number] Location: Room/Bed: Procedure: [id number] DX/CHEST 2 VIEWS Exam Date: 07/26/19 Exam Time: 1522 REPORT STATUS: Signed EXAMINATION: CHEST 2 VIEWS INDICATION: Cough COMPARISON: None FINDINGS: LINES/TUBES:None LUNGS:The lungs are moderately inflated. No focal con solidation or pulmonary edema. PLEURA:Scattered calcifications overlying both lungs and at both diaphragms are likely pleural-based. No pleural effusi on. No pneumothorax. MEDIASTINUM:The cardiomediastinal silhouette appears n ormal in size and shape. Atherosclerotic calcifications of the thoracic aorta. BONES/SOFT TISSUES:No acute osseous injury. ABDOMEN:No free air under the diaphragm. IMPRESSION: No focal pneumonia or pulmonary edema. Likely pleural-based calcifications, which can be seen with priors vessels exposure. Signed by: Joey Liu MD on 07/26/2019 3:46 PM Dictated By: JOEY LIU MD [id number] Transc ribed By: ANALIA on 07/26/19 1546 COPY TO: NORBERTO CROFT MD
== END 2020-04-06 13:30 | disposition home or self-care (01) ==
LOC: ER 13:13
DX: S00.83XA Contusion of other part of head, initial encounter (principal); W01.0XXA Fall on same level from slipping, tripping and stumbling without subsequent striking against object, initial encounter; Y93.01 Activity, walking, marching and hiking; Y92.008 Other place in unspecified non-institutional (private) residence as the place of occurrence of the external cause; I10 Essential (primary) hypertension; Z85.038 Personal history of other malignant neoplasm of large intestine
CPT/HCPCS: 70450; 70486; 72125; 99283

== ENCOUNTER 2020-07-26 15:56 | Emergency (ER) | payer MEDICARE ==
[~2020-07-26] VITALS: Ht 208.3 cm; Wt 80.7 kg
== END 2020-07-26 20:30 | disposition home or self-care (01) ==
LOC: ER 16:50
DX: M54.5 Low back pain (principal); S32.010S Wedge compression fracture of first lumbar vertebra, sequela; I10 Essential (primary) hypertension; I48.91 Unspecified atrial fibrillation; F32.9 Major depressive disorder, single episode, unspecified; Z85.038 Personal history of other malignant neoplasm of large intestine
CPT/HCPCS: 74176; 99283

== ENCOUNTER 2020-07-29 21:55 | Emergency (ER) | payer MEDICARE ==
[~2020-07-29] VITALS: Ht 208.3 cm; Wt 80.7 kg
[2020-07-29 22:38] VITALS: BP 126/73
== END 2020-07-29 23:43 | disposition home or self-care (01) ==
LOC: ER 22:13
DX: L89.152 Pressure ulcer of sacral region, stage 2 (principal); I10 Essential (primary) hypertension; I48.91 Unspecified atrial fibrillation; F32.9 Major depressive disorder, single episode, unspecified; E78.00 Pure hypercholesterolemia, unspecified; Z85.038 Personal history of other malignant neoplasm of large intestine
CPT/HCPCS: 99284

== ENCOUNTER 2020-08-08 12:25 | Inpatient (IN) | payer MEDICARE ==
[~2020-08-08] VITALS: Ht 185.4 cm; Wt 80.7 kg
[2020-08-08] MEDS ORDERED: SODIUM CHLORIDE 0.9% 1000ML 1,000 ML IV STA (14:08)
[2020-08-08] MEDS ORDERED: ONDANSETRON HCL INJ 2MG/ML 2ML 2 MG/ML VIAL IV STA (14:08)
[2020-08-08] MEDS ORDERED: PANTOPRAZOLE 40 MG 10ML VIAL IV NR (14:15)
[2020-08-08 14:53] LABS: BASOPHILS % 0.4 % (0.0-1.0); HEMATOCRIT 38.8 % (38.2-49.6); HEMOGLOBIN 12.9 g/dL (14.0-18.0); LYMPHOCYTES # (AUTO) 0.6 (1.0-3.2); LYMPHOCYTES % 7.7 % (18.0-39.1); MEAN CORPUSCULAR HEMOGLOBIN 31.2 pg (28-32); MEAN CORPUSCULAR HGB CONC 33.2 g/dL (31-35); MEAN CORPUSCULAR VOLUME 93.7 fL (81-99); MONOCYTES # (AUTO) 0.6 (0.2-0.8); MONOCYTES % 8.3 % (4.4-11.3); NEUTROPHILS # (AUTO) 6.2 (2.1-6.9); PLATELET COUNT 391 x10e3/uL (140-360); RED BLOOD COUNT 4.14 x10e6/uL (4.3-5.7); RED CELL DISTRIBUTION WIDTH 17.3 % (11.7-14.4)
[2020-08-08 15:15] LABS: ALBUMIN 2.9 g/dL (3.5-5.0); ALBUMIN/GLOBULIN RATIO 0.7 (0.8-2.0); CALCIUM 7.7 mg/dL (8.4-10.2); CREATININE, SERUM 1.94 mg/dL (0.72-1.25); MAGNESIUM 1.8 MG/DL (1.3-2.1)
[2020-08-08 15:22] LABS: CREATINE KINASE MB 1.6 ng/mL (0-5.0)
[2020-08-08 15:45] LABS: INR 3.73
[2020-08-08 15:46] LABS: PROTHROMBIN TIME 40.2 seconds (11.9-14.5)
[2020-08-08] MEDS ORDERED: BENZOCAINE/TETRACAINE/BUTAMBEN AERO SPRAY 56 GM CAN TOP ONE (17:00)
[2020-08-08 17:18] LABS: BAND NEUTROPHILS % (MANUAL) 8 %; LYMPHOCYTES % (MANUAL) 4 % (19-48); MONOCYTES % (MANUAL) 13 % (3.4-9.0); MYELOCYTES % (MANUAL) 1 % (0-0); NEUTROPHILS % (MANUAL) 74 % (40-74)
[2020-08-08 17:20] LABS: ANISOCYTOSIS SLIG; POIKILOCYTOSIS SLIGHT
[2020-08-08 17:21] LABS: PLATELET ESTIMATE ADEQUATE; PLATELET MORPHOLOGY COMMENT FEW LARGE
[2020-08-08] MEDS ORDERED: MORPHINE SULFATE INJ 2 MG/ML SYR IV PRN (18:00)
[2020-08-08] MEDS ORDERED: ONDANSETRON HCL INJ 2MG/ML 2ML 2 MG/ML VIAL IV PRN (18:00)
[2020-08-08] MEDS ORDERED: HEPARIN SOD (PORCINE) 5,000 UNIT/ML VIAL SC SCH (21:00)
[2020-08-08] MEDS: PIPERACILLIN/TAZOBACTAM 2.25 GM in SODIUM CHLORIDE 0.9% 50ML 50 ML IV SCH (22:06)
[2020-08-08] MEDS: SODIUM CHLORIDE 0.9% 1000ML 1,000 ML IV SCH (22:07)
[2020-08-08 23:38] LABS: CREATINE KINASE MB 3.4 ng/mL (0-5.0)
[2020-08-09 05:12] LABS: BASOPHILS % 0.2 % (0.0-1.0); HEMATOCRIT 34.2 % (38.2-49.6); HEMOGLOBIN 11.5 g/dL (14.0-18.0); LYMPHOCYTES # (AUTO) 0.4 (1.0-3.2); LYMPHOCYTES % 8.4 % (18.0-39.1); MEAN CORPUSCULAR HEMOGLOBIN 30.9 pg (28-32); MEAN CORPUSCULAR HGB CONC 33.6 g/dL (31-35); MEAN CORPUSCULAR VOLUME 91.9 fL (81-99); MONOCYTES # (AUTO) 0.6 (0.2-0.8); MONOCYTES % 12.2 % (4.4-11.3); NEUTROPHILS # (AUTO) 3.9 (2.1-6.9); NEUTROPHILS % 78.8 % (38.7-80.0); PLATELET COUNT 318 x10e3/uL (140-360); RED BLOOD COUNT 3.72 x10e6/uL (4.3-5.7); RED CELL DISTRIBUTION WIDTH 17.1 % (11.7-14.4)
[2020-08-09 05:15] LABS: CLARITY,URINE SL CLOUDY (CLEAR); COLOR,URINE YELLOW (YELLOW); LEUKOCYTE ESTERASE ,URINE MODERATE (NEGATIVE)
[2020-08-09] MEDS: SODIUM CHLORIDE 0.9% 1000ML 1,000 ML IV SCH ×3 (05:15→16:36)
[2020-08-09] MEDS: PIPERACILLIN/TAZOBACTAM 2.25 GM in SODIUM CHLORIDE 0.9% 50ML 50 ML IV SCH ×4 (05:15→16:36)
[2020-08-09 05:16] LABS: KETONES,URINE TRACE (NEGATIVE); NITRITE,URINE NEGATIVE (NEGATIVE); PROTEIN,URINE DIPSTICK 1+ (NEGATIVE); URINE UROBILINOGEN 0.2 mg/dL (0.2 - 1)
[2020-08-09 05:37] LABS: BACTERIA,URINE MANY /HPF; EPITHELIAL CELLS,URINE RARE /LPF
[2020-08-09 06:39] LABS: ALBUMIN 2.3 g/dL (3.5-5.0); ALBUMIN/GLOBULIN RATIO 0.7 (0.8-2.0); ANION GAP 18.8 mmol/L (8-16); CREATININE, SERUM 1.78 mg/dL (0.72-1.25)
[2020-08-09 06:43] LABS: POTASSIUM 2.8 mmol/L (3.5-5.1)
[2020-08-09 06:44] LABS: CALCIUM 6.5 mg/dL (8.4-10.2)
[2020-08-09] MEDS ORDERED: POTASSIUM CHLORIDE 10MEQ/100ML 200 ML IV ONE (07:00)
[2020-08-09 07:13] LABS: CREATINE KINASE MB 3.3 ng/mL (0-5.0)
[2020-08-09 07:39] LABS: BAND NEUTROPHILS % (MANUAL) 3 %; LYMPHOCYTES % (MANUAL) 12 % (19-48); MONOCYTES % (MANUAL) 11 % (3.4-9.0); NEUTROPHILS % (MANUAL) 74 % (40-74)
[2020-08-09 07:40] LABS: ANISOCYTOSIS SLIGHT; TARGET CELLS FEW
[2020-08-09 07:41] LABS: BURR CELLS SLIGHT; PLATELET ESTIMATE ADEQUATE; RBC MORPHOLOGY COMMENT NORMAL
[2020-08-09 07:42] LABS: PLATELET MORPHOLOGY COMMENT RARE EDTA CLUMPING
[2020-08-09 07:43] LABS: GIANT PLATELETS FEW; LARGE PLATELETS FEW
[2020-08-09] MEDS ORDERED: POTASSIUM CHLORIDE 20MEQ/100ML 200 ML IV ONE ×2 (07:45→19:15)
[2020-08-09 08:59] LABS: INR 5.14; PROTHROMBIN TIME 52.2 seconds (11.9-14.5)
[2020-08-09] MEDS: PANTOPRAZOLE 40 MG 10ML VIAL IV SCH (09:30)
[2020-08-09] MEDS ORDERED: SODIUM CHLORIDE 0.9% 250ML 250 ML ONE (10:03)
[2020-08-09] MEDS ORDERED: PHYTONADIONE 5 MG TAB PO ONE (11:00)
[2020-08-09] MEDS ORDERED: PHYTONADIONE 1 MG/0.5 ML AMP IM ONE (11:00)
[2020-08-09] MEDS ORDERED: PHYTONADIONE 10 MG/ML AMP IM ONE (11:30)
[2020-08-09 12:00] VITALS: BP 118/59
[2020-08-09 12:10] VITALS: BP 118/59
[2020-08-09 16:00] VITALS: BP 135/64
[2020-08-09] MEDS ORDERED: PIPERACILLIN/TAZOBACTAM SOD 2.25 GM VIAL ONE (16:09)
[2020-08-09] MEDS ORDERED: SODIUM CHLORIDE 0.9% 50ML 50 ML ONE (16:10)
[2020-08-09 18:47] LABS: INR 3.71
[2020-08-09 18:54] LABS: ANION GAP 20.5 mmol/L (8-16); CALCIUM 7.4 mg/dL (8.4-10.2); CREATININE, SERUM 1.75 mg/dL (0.72-1.25)
[2020-08-09 18:57] LABS: PROTHROMBIN TIME 40.1 seconds (11.9-14.5)
[2020-08-09 18:58] LABS: POTASSIUM 2.5 mmol/L (3.5-5.1)
[2020-08-09] MEDS ORDERED: POTASSIUM CHLORIDE 20MEQ/100ML 200 ML ONE (20:30)
[2020-08-09 20:48] VITALS: BP 162/66
[2020-08-09] MEDS ORDERED: PHYTONADIONE 10 MG/ML AMP IV ONE (21:00)
[2020-08-09] MEDS ORDERED: SODIUM CHLORIDE 0.9% IV ONE (21:30)
[2020-08-09] MEDS ORDERED: PHYTONADIONE IV ONE (21:30)
[2020-08-09] MEDS ORDERED: PHYTONADIONE 10MG/ML 10 MG in SODIUM CHLORIDE 0.9% 100 ML IV ONE (21:30)
[2020-08-10] VITALS (9 sets, daily range): BP systolic 122–162; BP diastolic 53–78
[2020-08-10] MEDS ORDERED: PIPERACILLIN/TAZOBACTAM SOD 2.25 GM VIAL ONE ×3 (00:25→13:27)
[2020-08-10] MEDS ORDERED: PHYTONADIONE 10MG/ML 1 ML ONE (00:25)
[2020-08-10] MEDS ORDERED: SODIUM CHLORIDE 0.9% 100 ML ONE (00:26)
[2020-08-10] MEDS ORDERED: SODIUM CHLORIDE 0.9% 50ML 50 ML ONE ×3 (00:28→13:28)
[2020-08-10] MEDS: PIPERACILLIN/TAZOBACTAM 2.25 GM in SODIUM CHLORIDE 0.9% 50ML 50 ML IV SCH ×5 (00:48→23:18)
[2020-08-10] MEDS ORDERED: SODIUM CHLORIDE 0.9% 250ML 250 ML ONE (02:02)
[2020-08-10] MEDS: SODIUM CHLORIDE 0.9% 1000ML 1,000 ML IV SCH ×4 (02:15→20:20)
[2020-08-10 06:37] LABS: BASOPHILS % 0.5 % (0.0-1.0); HEMATOCRIT 31.5 % (38.2-49.6); HEMOGLOBIN 10.3 g/dL (14.0-18.0); LYMPHOCYTES # (AUTO) 0.3 (1.0-3.2); LYMPHOCYTES % 5.7 % (18.0-39.1); MEAN CORPUSCULAR HEMOGLOBIN 31.3 pg (28-32); MEAN CORPUSCULAR HGB CONC 32.7 g/dL (31-35); MEAN CORPUSCULAR VOLUME 95.7 fL (81-99); MONOCYTES # (AUTO) 0.5 (0.2-0.8); MONOCYTES % 8.3 % (4.4-11.3); NEUTROPHILS # (AUTO) 4.8 (2.1-6.9); NEUTROPHILS % 84.1 % (38.7-80.0); PLATELET COUNT 269 x10e3/uL (140-360); RED BLOOD COUNT 3.29 x10e6/uL (4.3-5.7); RED CELL DISTRIBUTION WIDTH 17.3 % (11.7-14.4)
[2020-08-10 07:06] LABS: ANION GAP 18.7 mmol/L (8-16); CALCIUM 7.7 mg/dL (8.4-10.2); CREATININE, SERUM 1.22 mg/dL (0.72-1.25)
[2020-08-10 07:14] LABS: POTASSIUM 2.7 mmol/L (3.5-5.1)
[2020-08-10 08:02] LABS: INR 1.5; PROTHROMBIN TIME 19.2 seconds (11.9-14.5)
[2020-08-10] MEDS: PANTOPRAZOLE 40 MG 10ML VIAL IV SCH (08:39)
[2020-08-10] MEDS ORDERED: POTASSIUM CHLORIDE 20MEQ/100ML 200 ML IV ONE (12:30)
[2020-08-10] MEDS ORDERED: POTASSIUM CHLORIDE 10MEQ EA PO ONE (12:30)
[2020-08-10 14:14] LABS: ANISOCYTOSIS SLIGHT; LYMPHOCYTES % (MANUAL) 7 % (19-48); MONOCYTES % (MANUAL) 11 % (3.4-9.0); MYELOCYTES % (MANUAL) 2 % (0-0); NEUTROPHILS % (MANUAL) 80 % (40-74); PLATELET ESTIMATE ADEQUATE; PLATELET MORPHOLOGY COMMENT NORMAL; RBC MORPHOLOGY COMMENT NORMAL
[2020-08-11] VITALS (8 sets, daily range): BP systolic 134–152; BP diastolic 65–83
[2020-08-11] MEDS: PIPERACILLIN/TAZOBACTAM 2.25 GM in SODIUM CHLORIDE 0.9% 50ML 50 ML IV SCH ×4 (05:14→23:53)
[2020-08-11 06:22] LABS: BASOPHILS % 0.2 % (0.0-1.0); HEMATOCRIT 31.7 % (38.2-49.6); HEMOGLOBIN 10.4 g/dL (14.0-18.0); LYMPHOCYTES # (AUTO) 0.5 (1.0-3.2); LYMPHOCYTES % 5.3 % (18.0-39.1); MEAN CORPUSCULAR HEMOGLOBIN 31.8 pg (28-32); MEAN CORPUSCULAR HGB CONC 32.8 g/dL (31-35); MEAN CORPUSCULAR VOLUME 96.9 fL (81-99); MONOCYTES # (AUTO) 0.5 (0.2-0.8); MONOCYTES % 5.8 % (4.4-11.3); NEUTROPHILS # (AUTO) 7.5 (2.1-6.9); NEUTROPHILS % 86.5 % (38.7-80.0); PLATELET COUNT 254 x10e3/uL (140-360); RED BLOOD COUNT 3.27 x10e6/uL (4.3-5.7); RED CELL DISTRIBUTION WIDTH 18.3 % (11.7-14.4)
[2020-08-11 06:38] LABS: PHOSPHORUS 1.4 MG/DL (2.3-4.7)
[2020-08-11 06:50] LABS: ANION GAP 16.2 mmol/L (8-16); BLOOD UREA NITROGEN 27 mg/dL (7-26); BUN/CREATININE RATIO 33 (6-25); CALCIUM 7.9 mg/dL (8.4-10.2); CARBON DIOXIDE 23 mmol/L (22-29); CHLORIDE 117 mmol/L (98-107); CREATININE, SERUM 0.83 mg/dL (0.72-1.25); EST GLOMERULAR FILTRATION RATE > 60 ML/MIN (60-); GLUCOSE 69 mg/dL (74-118); POTASSIUM 3.2 mmol/L (3.5-5.1); SODIUM 153 mmol/L (136-145)
[2020-08-11] MEDS: PANTOPRAZOLE 40 MG 10ML VIAL IV SCH (08:23)
[2020-08-11] MEDS: COLLAGENASE 5 GM TUBE TOP SCH (10:57)
[2020-08-11] MEDS: SODIUM CHLORIDE 0.9% 1000ML 1,000 ML IV SCH (14:23)
[2020-08-11] MEDS ORDERED: POTASSIUM CHLORIDE 20 MEQ TAB CR PO STA (17:35)
[2020-08-11] MEDS ORDERED: SODIUM CHLORIDE 0.45% 1,000 ML IV ONE (17:45)
[2020-08-12] VITALS (8 sets, daily range): BP systolic 130–156; BP diastolic 79–93
[2020-08-12] MEDS: PIPERACILLIN/TAZOBACTAM 2.25 GM in SODIUM CHLORIDE 0.9% 50ML 50 ML IV SCH ×4 (05:48→23:32)
[2020-08-12 07:03] LABS: BASOPHILS % 0.2 % (0.0-1.0); EOSINOPHILS % 0.2 % (0.0-6.0); HEMATOCRIT 33.1 % (38.2-49.6); HEMOGLOBIN 10.4 g/dL (14.0-18.0); LYMPHOCYTES # (AUTO) 0.9 (1.0-3.2); LYMPHOCYTES % 7.6 % (18.0-39.1); MEAN CORPUSCULAR HGB CONC 31.4 g/dL (31-35); MEAN CORPUSCULAR VOLUME 98.5 fL (81-99); MONOCYTES # (AUTO) 0.8 (0.2-0.8); MONOCYTES % 7.1 % (4.4-11.3); NEUTROPHILS # (AUTO) 9.2 (2.1-6.9); NEUTROPHILS % 81.9 % (38.7-80.0); PLATELET COUNT 265 x10e3/uL (140-360); RED BLOOD COUNT 3.36 x10e6/uL (4.3-5.7); RED CELL DISTRIBUTION WIDTH 19.2 % (11.7-14.4)
[2020-08-12 07:24] LABS: ANION GAP 16.7 mmol/L (8-16); BLOOD UREA NITROGEN 19 mg/dL (7-26); BUN/CREATININE RATIO 25 (6-25); CALCIUM 8.2 mg/dL (8.4-10.2); CARBON DIOXIDE 23 mmol/L (22-29); CHLORIDE 119 mmol/L (98-107); CREATININE, SERUM 0.77 mg/dL (0.72-1.25); EST GLOMERULAR FILTRATION RATE > 60 ML/MIN (60-); GLUCOSE 87 mg/dL (74-118); POTASSIUM 3.7 mmol/L (3.5-5.1); SODIUM 155 mmol/L (136-145)
[2020-08-12 07:38] LABS: MAGNESIUM 1.9 MG/DL (1.3-2.1); PHOSPHORUS 0.8 MG/DL (2.3-4.7)
[2020-08-12] MEDS: DEXTROSE 5% 1,000 ML IV SCH (08:11)
[2020-08-12] MEDS: PANTOPRAZOLE 40 MG 10ML VIAL IV SCH (08:11)
[2020-08-12] MEDS ORDERED: POTASSIUM PHOSPHATE 15 MM in SODIUM CHLORIDE 0.9% 250ML 250 ML IV ONE (11:30)
[2020-08-12] MEDS: COLLAGENASE 5 GM TUBE TOP SCH (16:34)
[2020-08-13] VITALS (9 sets, daily range): BP systolic 120–145; BP diastolic 79–100
[2020-08-13] MEDS: PIPERACILLIN/TAZOBACTAM 2.25 GM in SODIUM CHLORIDE 0.9% 50ML 50 ML IV SCH ×3 (05:08→18:33)
[2020-08-13 08:17] LABS: ANION GAP 12.5 mmol/L (8-16); BLOOD UREA NITROGEN 16 mg/dL (7-26); BUN/CREATININE RATIO 21 (6-25); CALCIUM 7.8 mg/dL (8.4-10.2); CARBON DIOXIDE 25 mmol/L (22-29); CHLORIDE 120 mmol/L (98-107); CREATININE, SERUM 0.75 mg/dL (0.72-1.25); EST GLOMERULAR FILTRATION RATE > 60 ML/MIN (60-); GLUCOSE 113 mg/dL (74-118); POTASSIUM 3.5 mmol/L (3.5-5.1); SODIUM 154 mmol/L (136-145)
[2020-08-13] MEDS: PANTOPRAZOLE 40 MG 10ML VIAL IV SCH (09:58)
[2020-08-13] MEDS: COLLAGENASE 5 GM TUBE TOP SCH (09:58)
[2020-08-13] MEDS: DEXTROSE 5% 1,000 ML IV SCH ×2 (13:17)
[2020-08-14] VITALS (7 sets, daily range): BP systolic 116–141; BP diastolic 71–88
[2020-08-14] MEDS: PIPERACILLIN/TAZOBACTAM 2.25 GM in SODIUM CHLORIDE 0.9% 50ML 50 ML IV SCH ×5 (00:08→23:17)
[2020-08-14] MEDS: DEXTROSE 5% 1,000 ML IV SCH ×2 (01:51→16:56)
[2020-08-14] MEDS: PANTOPRAZOLE 40 MG 10ML VIAL IV SCH (09:12)
[2020-08-14] MEDS: COLLAGENASE 5 GM TUBE TOP SCH (09:12)
[2020-08-15] VITALS (9 sets, daily range): BP systolic 127–146; BP diastolic 59–96
[2020-08-15] MEDS: DEXTROSE 5% 1,000 ML IV SCH ×2 (04:32→18:26)
[2020-08-15] MEDS: PIPERACILLIN/TAZOBACTAM 2.25 GM in SODIUM CHLORIDE 0.9% 50ML 50 ML IV SCH ×3 (05:17→18:26)
[2020-08-15 05:18] LABS: BASOPHILS % 0.1 % (0.0-1.0); EOSINOPHILS # (AUTO) 0.2 (0.0-0.4); EOSINOPHILS % 2.5 % (0.0-6.0); HEMATOCRIT 31.5 % (38.2-49.6); HEMOGLOBIN 10.3 g/dL (14.0-18.0); LYMPHOCYTES # (AUTO) 0.8 (1.0-3.2); LYMPHOCYTES % 9.7 % (18.0-39.1); MEAN CORPUSCULAR HEMOGLOBIN 31.7 pg (28-32); MEAN CORPUSCULAR HGB CONC 32.7 g/dL (31-35); MEAN CORPUSCULAR VOLUME 96.9 fL (81-99); MONOCYTES # (AUTO) 0.7 (0.2-0.8); MONOCYTES % 8.9 % (4.4-11.3); NEUTROPHILS # (AUTO) 6.5 (2.1-6.9); NEUTROPHILS % 77.6 % (38.7-80.0); PLATELET COUNT 155 x10e3/uL (140-360); RED BLOOD COUNT 3.25 x10e6/uL (4.3-5.7)
[2020-08-15 05:59] LABS: ANION GAP 10.9 mmol/L (8-16); BLOOD UREA NITROGEN 11 mg/dL (7-26); BUN/CREATININE RATIO 14 (6-25); CALCIUM 7.2 mg/dL (8.4-10.2); CARBON DIOXIDE 25 mmol/L (22-29); CHLORIDE 115 mmol/L (98-107); CREATININE, SERUM 0.77 mg/dL (0.72-1.25); EST GLOMERULAR FILTRATION RATE > 60 ML/MIN (60-); GLUCOSE 112 mg/dL (74-118); SODIUM 148 mmol/L (136-145)
[2020-08-15 06:04] LABS: POTASSIUM 2.9 mmol/L (3.5-5.1)
[2020-08-15] MEDS ORDERED: POTASSIUM CHLORIDE 20MEQ/100ML 100 ML IV STA (06:36)
[2020-08-15] MEDS ORDERED: POTASSIUM CHLORIDE 20 MEQ TAB CR PO ONE (07:00)
[2020-08-15] MEDS: PANTOPRAZOLE 40 MG 10ML VIAL IV SCH (08:47)
[2020-08-15] MEDS: COLLAGENASE 5 GM TUBE TOP SCH (11:30)
[2020-08-15 13:09] LABS: ANION GAP 11.3 mmol/L (8-16); BLOOD UREA NITROGEN 10 mg/dL (7-26); BUN/CREATININE RATIO 13 (6-25); CALCIUM 7.5 mg/dL (8.4-10.2); CARBON DIOXIDE 25 mmol/L (22-29); CHLORIDE 114 mmol/L (98-107); CREATININE, SERUM 0.78 mg/dL (0.72-1.25); EST GLOMERULAR FILTRATION RATE > 60 ML/MIN (60-); GLUCOSE 116 mg/dL (74-118); POTASSIUM 3.3 mmol/L (3.5-5.1); SODIUM 147 mmol/L (136-145)
[2020-08-15] MEDS ORDERED: ETOMIDATE 2 MG/ML 10 ML INJ IV ONE (13:34)
[2020-08-15] MEDS ORDERED: POTASSIUM CHLORIDE 20 MEQ TAB CR PO STA (15:41)
[2020-08-15 18:00] LABS: ABG HCO3 23 mmol/L (22-26); ABG PCO2 31 mmHg (35-45); ABG PH 7.48 (7.35-7.45); ABG PO2 69 mmHg (80-105); ABG TCO2 24
[2020-08-15] MEDS ORDERED: FUROSEMIDE INJ 10 MG/ML 2 ML VIAL IV ONE (19:15)
[2020-08-16] VITALS (13 sets, daily range): BP systolic 51–129; BP diastolic 37–96
[2020-08-16] MEDS: PIPERACILLIN/TAZOBACTAM 2.25 GM in SODIUM CHLORIDE 0.9% 50ML 50 ML IV SCH ×4 (05:30→11:04)
[2020-08-16] MEDS ORDERED: FUROSEMIDE INJ 10 MG/ML 2 ML VIAL IV SCH (06:00)
[2020-08-16 07:15] LABS: BASOPHILS % 0.2 % (0.0-1.0); EOSINOPHILS # (AUTO) 0.1 (0.0-0.4); EOSINOPHILS % 0.8 % (0.0-6.0); HEMOGLOBIN 11.7 g/dL (14.0-18.0); LYMPHOCYTES # (AUTO) 0.7 (1.0-3.2); LYMPHOCYTES % 8.1 % (18.0-39.1); MEAN CORPUSCULAR HEMOGLOBIN 31.5 pg (28-32); MEAN CORPUSCULAR HGB CONC 32.5 g/dL (31-35); MONOCYTES # (AUTO) 0.7 (0.2-0.8); NEUTROPHILS # (AUTO) 7.4 (2.1-6.9); NEUTROPHILS % 81.9 % (38.7-80.0); PLATELET COUNT 179 x10e3/uL (140-360); RED BLOOD COUNT 3.71 x10e6/uL (4.3-5.7)
[2020-08-16 07:40] LABS: ANION GAP 14.6 mmol/L (8-16); BLOOD UREA NITROGEN 11 mg/dL (7-26); BUN/CREATININE RATIO 13 (6-25); CALCIUM 7.7 mg/dL (8.4-10.2); CARBON DIOXIDE 23 mmol/L (22-29); CHLORIDE 112 mmol/L (98-107); CREATININE, SERUM 0.83 mg/dL (0.72-1.25); EST GLOMERULAR FILTRATION RATE > 60 ML/MIN (60-); GLUCOSE 99 mg/dL (74-118); POTASSIUM 3.6 mmol/L (3.5-5.1); SODIUM 146 mmol/L (136-145)
[2020-08-16] MEDS ORDERED: FENTANYL 2000MCG/NS 250 250 ML IV SCH (09:00)
[2020-08-16] MEDS ORDERED: MIDAZOLAM HCL 5MG/ML 10ML VIAL 100 ML IV PRN (09:00)
[2020-08-16] MEDS: COLLAGENASE 5 GM TUBE TOP SCH (09:53)
[2020-08-16] MEDS: PANTOPRAZOLE 40 MG 10ML VIAL IV SCH (11:04)
[2020-08-16] MEDS ORDERED: PIPERACILLIN/TAZOBACTAM SOD 2.25 GM VIAL ONE (11:05)
[2020-08-16] MEDS ORDERED: EPINEPHRINE HCL 1:1000 1ML 1 MG/ML AMP ONE ×2 (13:37→13:38)
[2020-08-16] MEDS ORDERED: EPINEPHRINE HCL SYRINGE ONE (13:38)
[2020-08-16] MEDS ORDERED: SODIUM CHLORIDE FLUSH 10 ML SYR ONE (13:38)
[2020-08-16] MEDS ORDERED: CALCIUM CHLORIDE 10% 1.36 MEQ/ML 10ML SYR IV ONE (13:38)
[2020-08-16] MEDS ORDERED: SODIUM CHLORIDE 0.9% INJ 250 ML BAG ONE (13:38)
== END 2020-08-16 20:41 | disposition expired | DRG 388 ==
LOC: ER 14:29 → ERHOLD 18:00 → MED/SURG2 08-09 12:21 → ICU 08-16 08:58
PROVIDERS: ADMIT Internal Medicine; ATTEND Internal Medicine
PROC: 30233L1 Transfusion of Nonautologous Fresh Plasma into Peripheral Vein, Percutaneous Approach (ICD-10-PCS; 2020-08-09)
PROC: 30233K1 Transfusion of Nonautologous Frozen Plasma into Peripheral Vein, Percutaneous Approach (ICD-10-PCS; 2020-08-09)
PROC: 0D9670Z Drainage of Stomach with Drainage Device, Via Natural or Artificial Opening (ICD-10-PCS; 2020-08-09)
PROC: 5A12012 Performance of Cardiac Output, Single, Manual (ICD-10-PCS; principal; 2020-08-16)
PROC: 5A2204Z Restoration of Cardiac Rhythm, Single (ICD-10-PCS; 2020-08-16)
PROC: 5A1935Z Respiratory Ventilation, Less than 24 Consecutive Hours (ICD-10-PCS; 2020-08-16)
PROC: 0BH18EZ Insertion of Endotracheal Airway into Trachea, Via Natural or Artificial Opening Endoscopic (ICD-10-PCS; 2020-08-16)
DX: K56.609 Unspecified intestinal obstruction, unspecified as to partial versus complete obstruction (principal); J96.20 Acute and chronic respiratory failure, unspecified whether with hypoxia or hypercapnia; G93.41 Metabolic encephalopathy; A41.51 Sepsis due to Escherichia coli [E. coli]; K80.21 Calculus of gallbladder without cholecystitis with obstruction; N17.9 Acute kidney failure, unspecified; J90 Pleural effusion, not elsewhere classified; G93.1 Anoxic brain damage, not elsewhere classified; E87.0 Hyperosmolality and hypernatremia; N39.0 Urinary tract infection, site not specified; Z16.23 Resistance to quinolones and fluoroquinolones; I46.9 Cardiac arrest, cause unspecified; K52.9 Noninfective gastroenteritis and colitis, unspecified; I10 Essential (primary) hypertension; E78.5 Hyperlipidemia, unspecified; Z90.49 Acquired absence of other specified parts of digestive tract; Z96.653 Presence of artificial knee joint, bilateral; I48.0 Paroxysmal atrial fibrillation; K57.90 Diverticulosis of intestine, part unspecified, without perforation or abscess without bleeding; Z85.038 Personal history of other malignant neoplasm of large intestine; E87.6 Hypokalemia; B96.20 Unspecified Escherichia coli [E. coli] as the cause of diseases classified elsewhere; Z20.822 Contact with and (suspected) exposure to COVID-19; L89.150 Pressure ulcer of sacral region, unstageable
CPT/HCPCS: 36415; 36600; 71045; 74018; 74176; 76604; 80048; 80053; 81001; 82550; 82553; 82805; 82948; 83690; 83735; 83880; 84100; 84132; 84295; 84484; 85025; 85610; 85730; 86850; 86900; 86920; 87040; 87086; 87186; 93005; 94002; 96361; 97139; 99251; 99284; J0171; J1644; J1940; J2270; J2405; J2543; J3430; J3480; J7030; J7050; J7070; P9017; U0002